=== PATIENT | male | born 1980 | race Caucasian/White ===

== ENCOUNTER 2016-06-15 11:33 | Emergency (ER) | payer OTHER ==
[~2016-06-15] VITALS: Ht 170.2 cm; Wt 67.0 kg
[2016-06-15 11:37] VITALS: Ht 170.2 cm; Wt 67.0 kg
[2016-06-15] MEDS ORDERED: ONDANSETRON 4 MG INJ IV STA (12:17)
[2016-06-15] MEDS ORDERED: morphine 4 MG/ML VIAL IV STA (12:17)
[2016-06-15] MEDS ORDERED: SOD CHLORIDE 0.9% 1,000 ML IV STA (12:17)
[2016-06-15] MEDS ORDERED: ACETAMINOPHEN 325 MG TAB PO ONE (12:30)
--- NOTE | 2016-06-15 12:52 | RADRPT ---
PROCEDURE: XR Chest. CLINICAL INDICATION: chest pain, flank pain TECHNIQUE: Single frontal view of the chest was obtained COMPARISON: 05/22/12 FINDINGS: The heart and mediastinum are within normal limits. The lungs are clear. There is no pleural effusion or pneumothorax. RPTAT: AA IMPRESSION: No acute disease. .Toney Hernandez MD, MD Date Time Electronically viewed and signed by .Toney Hernandez MD, MD on 06/15/2016 12:52 .S/
[2016-06-15 12:53] LABS: ADD SCAN DIFF NO
[2016-06-15 12:54] LABS: ADD UMIC NO; URINE BILIRUBIN (Dip) NEGATIVE (NEGATIVE); URINE BLOOD (Dip) NEGATIVE (NEGATIVE); URINE COLOR LT. YELLOW (YELLOW); URINE GLUCOSE (Dip) NEGATIVE (NEGATIVE); URINE KETONES (Dip) NEGATIVE (NEGATIVE); URINE LEUKOCYTE ESTERASE (Dip) NEGATIVE (NEGATIVE); URINE NITRITE (Dip) NEGATIVE (NEGATIVE); URINE TOTAL PROTEIN (Dip) NEGATIVE (NEGATIVE); URINE UROBILINOGEN (Dip) 0.2 E.U./dL (0.1-1.0)
[2016-06-15 12:58] LABS: BASOPHILS % 0.4 % (0.0-2.0); EOSINOPHILS # 0.1 10^3/ul (0.0-0.5); EOSINOPHILS % 1.5 % (0.0-7.0); HEMOGLOBIN 14.9 g/dl (14.0-18.0); LYMPHOCYTES # 2.3 10^3/ul (0.8-2.9); LYMPHOCYTES % 31.1 % (15.0-51.0); MEAN CORPUSCULAR HEMOGLOBIN 30.5 pg (29.0-33.0); MEAN CORPUSCULAR HGB CONC 33.9 g/dl (32.0-37.0); MEAN CORPUSCULAR VOLUME 90.2 fl (82.0-101.0); MEAN PLATELET VOLUME 10.9 fl (7.4-10.4); MONOCYTE # 0.4 10^3/ul (0.3-0.9); MONOCYTES % 4.9 % (0.0-11.0); NEUTROPHIL # 4.5 10^3/ul (1.6-7.5); NEUTROPHILS % 61.8 % (39.0-77.0); PLATELET COUNT 210 10^3/UL (140-415); RED BLOOD COUNT 4.88 10^6/ul (4.70-6.10); RED CELL DISTRIBUTION WIDTH 12.8 % (11.5-14.5); WHITE BLOOD COUNT 7.3 10^3/ul (4.8-10.8)
[2016-06-15 13:06] LABS: ALBUMIN 4.5 g/dl (3.3-4.9)
[2016-06-15 13:08] LABS: INR 1.01; PROTIME 13.3 Sec (12.2-14.2)
[2016-06-15 13:09] LABS: BILIRUBIN,INDIRECT 0.5 mg/dl (0-1.1); BILIRUBIN,TOTAL 0.5 mg/dl (0.2-1.3); CREATININE 0.89 mg/dl (0.61-1.24); PARTIAL THROMBOPLASTIN TIME 30.1 Sec (25.0-35.0)
[2016-06-15 13:10] LABS: ALBUMIN/GLOBULIN RATIO 1.25; CALCIUM 9.2 mg/dl (8.4-10.2); TOTAL PROTEIN 8.1 g/dl (6.1-8.1)
--- NOTE | 2016-06-15 14:14 | RADRPT ---
PROCEDURE: CT Abdomen and Pelvis without contrast. CLINICAL INDICATION: Complains of 4 days of right flank pain with trouble urinating. TECHNIQUE: CT scan of the abdomen and pelvis without contrast was performed on a multidetector hig h-resolution CT scanner. The patient was scanned without intravenous contrast. Coronal and sagittal reformatted images were obtained from the axial source images. Images were reviewed on a high-resol [employer] PACS workstation. The total exam CTDI equals 6.97 mGy and the total exam DLP equals 393.69 mGy -cm. One or the following dose reduction techniques were used: -Automated exposure control. -Adjustment of the mA and/or KV according to patient's size. -Use of iterative reconstruction technique. COMPARISON: None. FINDINGS: Lung Bases: Unremarkable. GI:. Unremarkable. Liver: Unremarkable. Gallbladder: Unremarkable. Pancreas: Unremarkable. Spleen: Unremarkablel Adrenals: Unremarkable. Kidneys: There is no evidence of nephrolithiasis, ureteral lithiasis or obstructive uropathy. Bladder: Unremarkable. Pelvic Organs: Unremarkable. Skeleton: Normal for age. Other: N/A IMPRESSION: 1. No evidence of nephrolithiasis, ureteral lithiasis or obstructive uropathy. 2. Normal appearing appendix visualized. 3. No other significant intra-abdominal or pelvic process identified. RPTAT: [facility] Physician Lisa Date Time Electronically viewed and signed by Physician Lisa on 06/15/2016 14:14 /
[2016-06-15 15:59] LABS: POTASSIUM 4.1 mmol/L (3.5-5.1)
[2016-06-15 16:01] LABS: CREATININE 0.82 mg/dl (0.61-1.24)
[2016-06-15 16:02] LABS: CALCIUM 8.5 mg/dl (8.4-10.2)
[2016-06-15] MEDS ORDERED: HYDR-906 PO (16:05)
[2016-06-15] MEDS ORDERED: IBUP-1542 PO (16:05)
--- NOTE | 2016-06-15 16:05 | ERD ---
ER Documentation Chief Complaint Date/Time DATE: 06/15/16 Chief Complaint Right lower back pain/right flank pain HPI The patient is a 36-year-old male who presents to the Emergency Department with complaint of right-sided flank pain for the past 5 days. The pain is localized to the paraspinal muscles of the right lumbar back, and radiate towards the right flank. The pain is worsened with movement, particularly flexion, and mildly improved at rest. He notes that over the past month he has been smoking a lot of crystal meth, but stopped using approximately 4 days ago, as he assumed his pain was secondary to his meth use. He denies any fevers, chills, nausea, vomiting or diarrhea. Denies any black or bloody stools. Denies dysuria, hematuria, urinary frequency, urinary urgency or hesitancy. Denies any testicular pain, swelling or discharge. He rates his current pain as 8/10, but notes that he has not yet taken any medication for pain relief. Denies any falls, injuries or trauma to the back. Denies any prior back surgeries. Denies diabetes. Denies any history of IV drug use. ROS All systems reviewed and are negative except as per history of present illness. Medications Home Meds Active Scripts Ibuprofen* (Motrin*) 600 Mg Tab, 600 MG PO Q6, #20 TAB Prov:DUDLEY MAYA PA-C 06/15/16 Hydrocodone/Acetaminophen ([place] 5-325 Tablet) 1 Each Tablet, 1 EACH PO Q6, #10 TAB Prov:DUDLEY MAYA PA-C 06/15/16 Allergies Allergies: Coded Allergies: No Known Allergy (Unverified , 10/06/11) PMhx/Soc Medical and Surgical Hx: pt denies Surgical Hx History of Surgery: No Anesthesia Reaction: No Hx Neurological Disorder: No Hx Respiratory Disorders: No Hx Cardiac Disorders: No Hx Psychiatric Problems: Yes Hx Miscellaneous Medical Probl: No Hx Alcohol Use: Yes Hx Substance Use: Yes (meth, marijuana) Hx Tobacco Use: No Smoking Status: Current some day smoker Physical Exam Vitals Vital Signs Date Time Temp Pulse Resp B/P Pulse Ox O2 Delivery O2 Flow Rate FiO2 06/15/16 16:11 78 17 132/78 100 Room Air 06/15/16 11:37 99.1 102 16 126/88 99 Physical Exam GENERAL: Well-developed, well-nourished, in no acute distress HEENT: Head is normocephalic, atraumatic. No scleral pallor or icterus. Pupils equal, round and reactive to light. Conjunctiva pink. Moist mucous membranes. NECK: Supple. No masses, no tenderness, no lymphadenopathy. RESPIRATORY: Lungs are clear to auscultation bilaterally. Equal breath sounds. Normal expiratory effort. CARDIOVASCULAR: Regular rate and rhythm. S1 and S2 normal. GASTROINTESTINAL: Abdomen is soft, nontender, and nondistended. No guarding, no rebound tenderness. Normal bowel sounds. No pulsatile abdominal masses. No gross peritonitis. FLANK: No CVA tenderness, no mass or swelling. BACK: No midline tenderness. Mild right-sided paraspinal tenderness. Spine curve normal. No deformities. No step offs. No swelling. No vesicles. No saddle- region anesthesia. No foot drop. Negative straight leg raise. EXTREMITIES: No clubbing, cyanosis, or edema. Normal skin perfusion. Moving all extremities. No focal swelling or erythema. Distal pulses are palpable, 2+ bilaterally. Capillary refill is less than 2 seconds. Strength 5/5 lower extremities bilaterally. NEUROLOGIC: The patient is alert, awake, and oriented x 3. No focal neurologic deficits. Gait is observed and normal. There is no ataxia. Motor normal in all extremities. INTEGUMENT: Skin is clean, dry and intact. No rashes, lesions or petechiae present. Normal turgor. PSYCHIATRIC: Appropriate; Cooperative. Result Diagram: 06/15/16 1230 06/15/16 1500 Results 24 hrs Laboratory Tests Test 06/15/16 12:30 06/15/16 15:00 Activated Partial Thromboplast Time 30.1Sec Alanine Aminotransferase (ALT/SGPT) 22IU/L Albumin 4.5g/dl Albumin/Globulin Ratio 1.25 Alkaline Phosphatase 64IU/L Anion Gap 17 14 Aspartate Amino Transf (AST/SGOT) 19IU/L Basophils # 0.010^3/ul Basophils % 0.4% Blood Urea Nitrogen 6mg/dl 5mg/dl Calcium Level 9.2mg/dl 8.5mg/dl Carbon Dioxide Level 27mmol/L 27mmol/L Chloride Level 102mmol/L 104mmol/L Creatinine 0.89mg/dl 0.82mg/dl Direct Bilirubin 0.00mg/dl Eosinophils # 0.110^3/ul Eosinophils % 1.5% Globulin 3.60g/dl Glucose Level 97mg/dl 89mg/dl Hematocrit 44.0% Hemoglobin 14.9g/dl INR International Normalized Ratio 1.01 Indirect Bilirubin 0.5mg/dl Lipase 35U/L Lymphocytes # 2.310^3/ul Lymphocytes % 31.1% Mean Corpuscular Hemoglobin 30.5pg Mean Corpuscular Hemoglobin Concent 33.9g/dl Mean Corpuscular Volume 90.2fl Mean Platelet Volume 10.9fl Monocytes # 0.410^3/ul Monocytes % 4.9% Neutrophils # 4.510^3/ul Neutrophils % 61.8% Nucleated Red Blood Cells # 0.010^3/ul Nucleated Red Blood Cells % 0.0/100WBC Platelet Count 47713^3/UL Potassium Level 4.0mmol/L 4.1mmol/L Prothrombin Time 13.3Sec Prothrombin Time Ratio 1.0 Red Blood Count 4.8810^6/ul Red Cell Distribution Width 12.8% Sodium Level 142mmol/L 141mmol/L Total Bilirubin 0.5mg/dl Total Protein 8.1g/dl Urine Bilirubin NEGATIVE Urine Clarity CLEAR Urine Color LT. YELLOW Urine Glucose NEGATIVE% Urine Hemoglobin NEGATIVE Urine Ketones NEGATIVE Urine Leukocyte Esterase NEGATIVE Urine Nitrite NEGATIVE Urine Specific [place] 1.015 Urine Total Protein NEGATIVE Urine Urobilinogen 0.2 E.U./dL Urine pH 6.0 White Blood Count 7.310^3/ul Current Medications Medications (Trade) Dose Ordered Sig/Vikki Route PRN Reason Start Time Stop Time Status Last Admin Dose Admin Sodium Chloride (NS) 1,000 ml @ 1,000 mls/hr Q1H STAT IV 06/15/16 12:17 06/15/16 13:16 DC 06/15/16 12:38 Morphine Sulfate (morphine) 4 mg ONCE STAT IV 06/15/16 12:17 06/15/16 12:19 DC 06/15/16 12:39 Ondansetron HCl (Zofran Inj) 4 mg ONCE STAT IV 06/15/16 12:17 06/15/16 12:19 DC 06/15/16 12:38 Acetaminophen (Tylenol Tab) 650 mg ONCE ONCE PO 06/15/16 12:30 06/15/16 12:31 DC 06/15/16 12:38 Procedures/MDM Diagnostic Tests and Interpretation: PROCEDURE: XR Chest. CLINICAL INDICATION: chest pain, flank pain TECHNIQUE: Single frontal view of the chest was obtained COMPARISON: 05/22/12 FINDINGS: The heart and mediastinum are within normal limits. The lungs are clear. There is no pleural effusion or pneumothorax. IMPRESSION:No acute disease. .Toney Hernandez MD, Date Time Electronically viewed and signed by .Toney Hernandez MD, on 06/15/2016 12: 52 PROCEDURE: CT Abdomen and Pelvis without contrast. CLINICAL INDICATION: Complains of 4 days of right flank pain with trouble urinating. TECHNIQUE: CT scan of the abdomen and pelvis without contrast was performed on a multidetector high-resolution CT scanner. The patient was scanned without intravenous contrast. Coronal and sagittal reformatted images were obtained from the axial source images. Images were reviewed on a high-resolution PACS workstation. The total exam CTDI equals 6.97 mGy and the total exam DLP equals 393.69 mGy-cm. One or the following dose reduction techniques were used: -Automated exposure control. -Adjustment of the mA and/or KV according to patient's size. -Use of iterative reconstruction technique. COMPARISON: None. FINDINGS: Lung Bases: Unremarkable. GI:. Unremarkable. Liver: Unremarkable. Gallbladder: Unremarkable. Pancreas: Unremarkable. Spleen: Unremarkable Adrenals: Unremarkable. Kidneys: There is no evidence of nephrolithiasis, ureteral lithiasis or obstructive uropathy. Bladder: Unremarkable. Pelvic Organs: Unremarkable. Skeleton: Normal for age. Other: N/A IMPRESSION: 1. No evidence of nephrolithiasis, ureteral lithiasis or obstructive uropathy. 2. Normal appearing appendix visualized. 3. No other significant intra-abdominal or pelvic process identified. Physician Lisa Date Time Electronically viewed and signed by Physician Lisa on 06/15/2016 14: 14 The patients case was reviewed and discussed with Dr. Dudley, who agrees with the plan of care including labs, treatment and advanced imaging as appropriate. Emergency Department Course: The patient was stable throughout the ER course. The patient was given Morphine and Zofran for pain and symptomatic control. On reassessment, the patient was sitting comfortably and stated that his pain had resolved. Medical Decision Making: This is a 36-year-old male presenting to the Emergency Department with right-sided lumbar back and flank pain. On physical examination the patient had tenderness to palpation over the right paraspinal muscles of the lumbar back. He had negative straight leg raise, with no saddle-region anesthesia noted. He exhibited no altered mental status, neurologic deficits, saddle anesthesia, bowel or bladder disturbances, incontinence, urinary retention, or lower extremity motor or sensory deficits. He had no los abdominal tenderness to suggest appendicitis. Abdomen was soft, nontender and nondistended, no indication of acute/surgical abdomen. No RUQ tenderness to suggest cholecystitis. The differential diagnosis includes, but is not limited to cauda equina syndrome, epidural abscess, epidural hematoma, osteomyelitis, vertebral fracture , lumbosacral strain, herniated disc, spinal stenosis, nephrolithiasis, osteoarthritis, sciatica, spondylolisthesis, bursitis, fracture, pyelonephritis , abdominal aortic aneurysm, aortic dissection, herpes zoster, radiculopathy, myelopathy, neoplastic disease, biliary colic, pancreatitis, appendicitis, mesenteric ischemia, hernia, perforated viscous, diverticulitis, bowel obstruction, torsion, retroperitoneal abscess/hematoma. CBC reveals no leukocytosis, no significant anemia. No significant electrolyte abnormalities noted to require medication replacement. No transaminitis. Creatinine and BUN within normal limits, no prerenal azotemia or acute kidney injury. Signs and symptoms not consistent with urinary tract infection, and urinalysis reveals no leukocyte esterase, no nitrites. I do not suspect pyelonephritis or cystitis. No significant abnormalities noted on chest x-ray or CT imaging. After rest, the patient reports no new complaints, and resolved pain. Upon my review and interpretation of the patient's presentation, clinical data, and overall ER course, I believe the patient's symptoms are most consistent with right flank pain and lumbar back pain, uncertain etiology.. I doubt cord compression or cauda equina syndrome, as patient is with equal, strong motor in bilateral lower extremities, no bowel/bladder disturbances, incontinence or retention, no saddle-anesthesia. Doubt vertebral fracture, no midline bony tenderness, no history of significant recent trauma. Doubt neoplastic disease, metastases unlikely given no night sweats, systemic symptoms, no risk factors. Doubt epidural abscess, patient is afebrile, with no history of IV drug use and is immunocompetent. Renal/aortic pathology not consistent with patient history or physical examination, no pulsatile abdominal masses, equal pulses bilaterally. Doubt pyelonephritis, no systemic symptoms, no CVA tenderness. Doubt zoster, no vesicular lesions noted. At this time, the patient is in stable condition and therefore can be discharged home with a prescription for [place] and Ibuprofen and strict return precautions for signs of deteriorating or worsening condition. The patient is advised to follow up with his primary care provider within 2-3 days for reevaluation and further management, or return to the ER sooner for any new or worsening symptoms. I shared my medical decision making and plan with the patient at length and in great detail, and the patient verbally understands and agrees with the plan for further observation and care as an outpatient. At the time of discharge, all questions were answered. Departure Diagnosis: Primary Impression: Right flank pain Additional Impression: Right-sided back pain Back pain location: low back pain Chronicity: acute Sciatica presence: without sciatica Qualified Code: M54.5 - Acute right-sided low back pain without sciatica Condition: Stable Patient Instructions: Flank Pain, Uncertain Cause Additional Instructions: Call your primary care doctor TOMORROW for an appointment during the next 2-3 days.See the doctor sooner or return here if your condition worsens before your appointment time. DUDLEY MAYA PA-C Jun 15, 2016 16:05
[2016-06-15 16:11] VITALS: BP 132/78; PULSE 78; RESP 17
== END 2016-06-15 16:12 | disposition home or self-care (01) ==
LOC: FTE 11:33
DX: R10.9 Unspecified abdominal pain (principal); F17.210 Nicotine dependence, cigarettes, uncomplicated
CPT/HCPCS: 36415; 71010; 74176; 80048; 80053; 81003; 83690; 85025; 85610; 85730; 87086; 96361; 96374; 96375; J2270; J2405; J7030; Z7502; Z7610